=== PATIENT | female | born 1980 | race American Indian/Alaskan Native ===

== ENCOUNTER 2019-07-02 09:43 | Emergency (ER) | payer SELFPAY ==
[2019-07-02] MEDS ORDERED: NACL 0.9% 1000 ML 1,000 ML IV ONE (12:04)
[2019-07-02 12:05] LABS: BUN/Creatinine Ratio 13; Blood Urea Nitrogen 10 mg/dL (7-17); Calcium 8.7 mg/dL (8.4-10.2); Hemolysis Index 0
[2019-07-02 12:10] LABS: Basophils % (Auto) 0.2 % (0.0-1.8); Eosinophils # (Auto) 0.2 K/mm3 (0.0-0.4); Eosinophils % (Auto) 2.9 % (0.0-4.3); Hematocrit 33.5 % (30.3-42.9); Hemoglobin 10.5 gm/dl (10.1-14.3); Lymphocytes # (Auto) 2.4 K/mm3 (1.2-5.4); Lymphocytes % (Auto) 42.1 % (13.4-35.0); Mean Corpuscular HGB Conc 31 % (30-34); Mean Corpuscular Volume 75 fl (79-97); Monocytes # (Auto) 0.5 K/mm3 (0.0-0.8); Monocytes % (Auto) 8.1 % (0.0-7.3); Platelet Count 358 K/mm3 (140-440); Red Blood Count 4.44 M/mm3 (3.65-5.03)
[2019-07-02 12:13] LABS: Bacteria,Urine 1+ /HPF (Negative); Bilirubin,Urine NEG (Negative); Blood,Urine SM (Negative); Color,Urine Yellow (Yellow); Mucus,Urine 3+ /HPF; Protein,Urine <15 mg/dL mg/dL (Negative); Urobilinogen,Urine < 2.0 mg/dL (<2.0)
[2019-07-02] MEDS ORDERED: MACROBID PO ONE (12:19)
[2019-07-02 12:20] LABS: Free T4 (Free Thyroxine) 1.22 ng/dL (0.76-1.46)
--- NOTE | 2019-07-02 13:18 | Emergency Department Report ---
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 Patient states that today she had episode of spinning sensation that then resolved. While at work today she had lightheadedness with standing and si tting upright. She complains of nausea, vomiting, persistent headache, acute neck pain, sore throat, chest pain, shortness of breath, abdominal pain, melena, hematochezia, or fever. Patient has a history uterine fibroids and recently completed her menstrual cycle with this typically headache the usage of had a pad and a tampon in a 2 hour period. She denies any focal weakness, numbness, his hearing, ear pain, or tinnitus. - Related Data Previous Rx's Medication Instructions Recorded Last Taken Type Amoxicillin/Potassium Clav 1 each PO BID #14 tablet 10/31/18 Unknown Rx [Augmentin 500-125 Tablet] Benzonatate [Tessalon Perles] 100 mg PO Q8HR #20 capsule 10/31/18 Unknown Rx Loratadine [Claritin] 10 mg PO DAILY #30 tablet 10/31/18 Unknown Rx Nitrofurantoin Hart/M-Cryst 100 mg PO Q12HR #13 capsule 07/02/19 Unknown Rx [Macrobid CAP] Allergies Allergy/AdvReac Type Severity Reaction Status Date / Time acetaminophen [From Vicodin] AdvReac Itching Verified 10/31/18 15:08 hydrocodone [From Vicodin] AdvReac Itching Verified 10/31/18 15:08 ED Review of Systems ROS: Stated complaint: DIZZINESS Other details as noted in HPI Comment: All other systems reviewed and negative ED Past Medical Hx - Past Medical History Previous Medical History?: No - Surgical History Hx Cholecystectomy: Yes Additional Surgical History: Tubal ligation - Social History Smoking Status: Current Every Day Smoker Substance Use Type: None - Medications Home Medications: Home Medications Medication Instructions Recorded Confirmed Last Taken Type Amoxicillin/Potassium Clav 1 each PO BID #14 tablet 10/31/18 Unknown Rx [Augmentin 500-125 Tablet] Benzonatate [Tessalon Perles] 100 mg PO Q8HR #20 capsule 10/31/18 Unknown Rx Loratadine [Claritin] 10 mg PO DAILY #30 tablet 10/31/18 Unknown Rx Nitrofurantoin Hart/M-Cryst 100 mg PO Q12HR #13 capsule 07/02/19 Unknown Rx [Macrobid CAP] ED Physical Exam - General Limitations: No Limitations - Other Other exam information: General: no acute distress Head: Atraumatic, normocephalic Eyes: Normal appearance, pupils equal and reactive to light, extraocular movements intact , no gross visual field defect. No nystagmus. No reproducible vertigo with head position and postural changes. Visual acuity with glasses right 20/20, left 20/20, bilateral 20/20 ENT: normal oropharynx, Bilateral TMs normal without cerumen impaction or fluid Neck: Normal appearance, no stridor, no meningismus, no midline tenderness. Cardiovascular: Regular rate and rhythm Chest: Clear to auscultation, no wheezes, rales, or crackles Abdomen: nondistended, soft, nontender, no rebound or guarding Extremity: Normal appearance, no deformity, full range of motion Neuro: Alert and oriented 3, clear speech, no gross motor or sensory deficit, f [id number] function intact Skin: No warmth, erythema ED Course Vital Signs 07/02/19 07/02/19 07/02/19 09:45 10:38 11:44 Temperature 98.6 F 98.0 F Pulse Rate 75 65 Respiratory 19 16 18 Rate Blood Pressure 120/73 122/74 [Left] O2 Sat by Pulse 98 99 98 Oximetry ED Medical Decision Making - Lab Data Result diagrams: 07/02/19 11:17 07/02/19 11:17 Lab Results 07/02/19 07/02/19 07/02/19 Range/Units 11:17 11:17 11:17 WBC 5.6 (4.5-11.0) K/mm3 RBC 4.44 (3.65-5.03) M/mm3 Hgb 10.5 (10.1-14.3) gm/dl Hct 33.5 (30.3-42.9) % MCV 75 L (79-97) fl MCH 24 L (28-32) pg MCHC 31 (30-34) % RDW 19.0 H (13.2-15.2) % Plt Count 358 (140-440) K/mm3 Lymph % (Auto) 42.1 H (13.4-35.0) % Hart % (Auto) 8.1 H (0.0-7.3) % Eos % (Auto) 2.9 (0.0-4.3) % Baso % (Auto) 0.2 (0.0-1.8) % Lymph # 2.4 (1.2-5.4) K/mm3 Hart # 0.5 (0.0-0.8) K/mm3 Eos # 0.2 (0.0-0.4) K/mm3 Baso # 0.0 (0.0-0.1) K/mm3 Seg Neutrophils % 46.7 (40.0-70.0) % Seg Neutrophils # 2.6 (1.8-7.7) K/mm3 Sodium 137 (137-145) mmol/L Potassium 4.1 (3.6-5.0) mmol/L Chloride 102.4 (98-107) mmol/L Carbon Dioxide 25 (22-30) mmol/L Anion Gap 14 mmol/L BUN 10 (7-17) mg/dL Creatinine 0.8 (0.7-1.2) mg/dL Estimated GFR > 60 ml/min BUN/Creatinine Ratio 13 % Glucose 95 (65-100) mg/dL POC Glucose (70-105) Calcium 8.7 (8.4-10.2) mg/dL Magnesium (1.7-2.3) mg/dL TSH 1.240 (0.270-4.200) mlU/mL Free T4 1.22 (0.76-1.46) ng/dL HCG, Qual (Negative) Urine Color (Yellow) Urine Turbidity (Clear) Urine pH (5.0-7.0) Ur Specific [place] (1.003-1.030) Urine Protein (Negative) mg/dL Urine Glucose (UA) (Negative) mg/dL Urine Ketones (Negative) mg/dL Urine Blood (Negative) Urine Nitrite (Negative) Urine Bilirubin (Negative) Urine Urobilinogen (<2.0) mg/dL Ur Leukocyte Esterase (Negative) Urine WBC (Auto) (0.0-6.0) /HPF Urine RBC (Auto) (0.0-6.0) /HPF U Epithel Cells (Auto) (0-13.0) /HPF Urine Bacteria (Auto) (Negative) /HPF Urine Mucus /HPF 07/02/19 07/02/19 07/02/19 Range/Units 11:17 11:17 11:31 WBC (4.5-11.0) K/mm3 RBC (3.65-5.03) M/mm3 Hgb (10.1-14.3) gm/dl Hct (30.3-42.9) % MCV (79-97) fl MCH (28-32) pg MCHC (30-34) % RDW (13.2-15.2) % Plt Count (140-440) K/mm3 Lymph % (Auto) (13.4-35.0) % Hart % (Auto) (0.0-7.3) % Eos % (Auto) (0.0-4.3) % Baso % (Auto) (0.0-1.8) % Lymph # (1.2-5.4) K/mm3 Hart # (0.0-0.8) K/mm3 Eos # (0.0-0.4) K/mm3 Baso # (0.0-0.1) K/mm3 Seg Neutrophils % (40.0-70.0) % Seg Neutrophils # (1.8-7.7) K/mm3 Sodium (137-145) mmol/L Potassium (3.6-5.0) mmol/L Chloride (98-107) mmol/L Carbon Dioxide (22-30) mmol/L Anion Gap mmol/L BUN (7-17) mg/dL Creatinine (0.7-1.2) mg/dL Estimated GFR ml/min BUN/Creatinine Ratio % Glucose (65-100) mg/dL POC Glucose 98 (70-105) Calcium (8.4-10.2) mg/dL Magnesium 1.90 (1.7-2.3) mg/dL TSH (0.270-4.200) mlU/mL Free T4 (0.76-1.46) ng/dL HCG, Qual Negative (Negative) Urine Color (Yellow) Urine Turbidity (Clear) Urine pH (5.0-7.0) Ur Specific [place] (1.003-1.030) Urine Protein (Negative) mg/dL Urine Glucose (UA) (Negative) mg/dL Urine Ketones (Negative) mg/dL Urine Blood (Negative) Urine Nitrite (Negative) Urine Bilirubin (Negative) Urine Urobilinogen (<2.0) mg/dL Ur Leukocyte Esterase (Negative) Urine WBC (Auto) (0.0-6.0) /HPF Urine RBC (Auto) (0.0-6.0) /HPF U Epithel Cells (Auto) (0-13.0) /HPF Urine Bacteria (Auto) (Negative) /HPF Urine Mucus /HPF 07/02/19 Range/Units 11:38 WBC (4.5-11.0) K/mm3 RBC (3.65-5.03) M/mm3 Hgb (10.1-14.3) gm/dl Hct (30.3-42.9) % MCV (79-97) fl MCH (28-32) pg MCHC (30-34) % RDW (13.2-15.2) % Plt Count (140-440) K/mm3 Lymph % (Auto) (13.4-35.0) % Hart % (Auto) (0.0-7.3) % Eos % (Auto) (0.0-4.3) % Baso % (Auto) (0.0-1.8) % Lymph # (1.2-5.4) K/mm3 Hart # (0.0-0.8) K/mm3 Eos # (0.0-0.4) K/mm3 Baso # (0.0-0.1) K/mm3 Seg Neutrophils % (40.0-70.0) % Seg Neutrophils # (1.8-7.7) K/mm3 Sodium (137-145) mmol/L Potassium (3.6-5.0) mmol/L Chloride (98-107) mmol/L Carbon Dioxide (22-30) mmol/L Anion Gap mmol/L BUN (7-17) mg/dL Creatinine (0.7-1.2) mg/dL Estimated GFR ml/min BUN/Creatinine Ratio % Glucose (65-100) mg/dL POC Glucose (70-105) Calcium (8.4-10.2) mg/dL Magnesium (1.7-2.3) mg/dL TSH (0.270-4.200) mlU/mL Free T4 (0.76-1.46) ng/dL HCG, Qual (Negative) Urine Color Yellow (Yellow) Urine Turbidity Slightly-cloudy (Clear) Urine pH 6.0 (5.0-7.0) Ur Specific [place] 1.019 (1.003-1.030) Urine Protein <15 mg/dl (Negative) mg/dL Urine Glucose (UA) Neg (Negative) mg/dL Urine Ketones Neg (Negative) mg/dL Urine Blood Sm (Negative) Urine Nitrite Pos (Negative) Urine Bilirubin Neg (Negative) Urine Urobilinogen < 2.0 (<2.0) mg/dL Ur Leukocyte Esterase Sm (Negative) Urine WBC (Auto) 78.0 H (0.0-6.0) /HPF Urine RBC (Auto) 6.0 (0.0-6.0) /HPF U Epithel Cells (Auto) 4.0 (0-13.0) /HPF Urine Bacteria (Auto) 1+ (Negative) /HPF Urine Mucus 3+ /HPF - Medical Decision Making Patient did have increased heart rate with standing without drop in blood pressure. She received 1 L of normal saline with improvement in the lightheaded feeling. Patient's urine is infected and she received Macrobid for UTI. She is requesting to go back to work and is cleared since she is feeling better. - Differential Diagnosis dehydration, UTI, anemia, thyroid Critical Care Time: No Critical care attestation.: If time is entered above; I have spent that time in minutes in the direct care of this critically ill patient, excluding procedure time. ED Disposition Clinical Impression: UTI (urinary tract infection), Dehydration Disposition: DC- TO HOME OR SELFCARE Is pt being admited?: No Does the pt Need Aspirin: No Condition: Stable Instructions: Urinary Tract Infection in Women (ED), Dehydration (ED) Additional Instructions: Take the medication is prescribed. Follow-up with your doctor or the doctor/clinic provided. Return if symptoms worsen as indicated by your discharge instructions. Prescriptions: Nitrofurantoin Hart/M-Cryst [Macrobid CAP] 100 mg PO Q12HR #13 capsule Referrals: ZOHAIB KEVIN MD [Primary Care Provider] - 3-5 Days your, doctor [Other] - 3-5 Days Forms: Work/School Release Form(ED) Time of Disposition: 13:46
[2019-07-02 13:28] VITALS: BP 109/73
== END 2019-07-02 13:58 | disposition home or self-care (01) ==
LOC: ED 09:43 → EEVIPCON 09:43 → ED 13:58
DX: E86.0 Dehydration (principal); N39.0 Urinary tract infection, site not specified; F17.200 Nicotine dependence, unspecified, uncomplicated; Z98.51 Tubal ligation status; Z90.49 Acquired absence of other specified parts of digestive tract; Z88.6 Allergy status to analgesic agent; Z88.5 Allergy status to narcotic agent
CPT/HCPCS: 36415; 80048; 81001; 82962; 83735; 84439; 84443; 84703; 85025; 87076; 87086; 87186; 96360; 99284; J7030